=== PATIENT | female | born 1960 | race Caucasian/White ===

== ENCOUNTER 2018-08-03 12:09 | Emergency (ER) | payer BC ==
[~2018-08-03] VITALS: Ht 162.6 cm; Wt 74.5 kg
[2018-08-03 12:18] VITALS: Ht 162.6 cm; Wt 74.5 kg
[2018-08-03] MEDS ORDERED: CLEOCIN HCL300 MG PO (16:08)
[2018-08-03] MEDS ORDERED: NORCO 7.5/325 T1 TA1 PO (16:08)
[2018-08-03 16:50] VITALS: BP 142/81
== END 2018-08-03 16:50 | disposition home or self-care (01) ==
LOC: D.ER 12:09
DX: S51.811A Laceration without foreign body of right forearm, initial encounter (principal); W01.110A Fall on same level from slipping, tripping and stumbling with subsequent striking against sharp glass, initial encounter; Y93.89 Activity, other specified; Y92.89 Other specified places as the place of occurrence of the external cause; F17.200 Nicotine dependence, unspecified, uncomplicated